=== PATIENT | male | born 1965 | race Caucasian/White ===

== ENCOUNTER → 2018-04-29 07:52 | Outpatient (CLI) | payer BC, SELFPAY ==
--- NOTE | 2018-04-29 08:05 | ECHOD_ITS ---
Reason For Study: CHF Procedure This was a 2D Doppler, Color Flow transthoracic echocardiogram. The study was technically difficult. Due to body habitus. Contrast injection was performed. Exam performed in department. Left Ventricle Moderately dilated left ventricle. Mild concentric left ventricular hypertrophy. Severe global left ventricular systolic dysfunction. The estimated ejection fraction is 20 %. There is evidence of diastolic dysfunction. Right Ventricle Normal RV size. Normal systolic function. Atria The left atrium is moderately enlarged. The right atrium is mildly enlarged. No doppler evidence for ASD. Mitral Valve There is no mitral annular calcification. Normal mitral valve. Mild-Moderate (1-2+) mitral valve insufficiency. Tricuspid Valve Normal tricuspid valve. Trivial tricuspid valve insufficiency. Right ventricular systolic pressure estimated to be 31 mmHg. Aortic Valve Trisinus/trileaflet aortic valve. Mild focal aortic valve thickening. Pulmonic Valve Normal pulmonic valve. Trivial pulmonic valve insufficiency identified. Great Vessels Normal sized aortic root. Pericardium/Pleural No pericardial effusion. Medication Diluted definity 3.0ml given slow IV push to enhance endocardial definition. MMode/2D Measurements & Calculations LVIDd: 6.4 cm IVSd: 1.3 cm Ao root diam: 3.1 cm LVIDs: 5.8 cm LVPWd: 1.3 cm RVDd: 4.0 cm FS: 9.2 % LAV(MOD-bp): 144.9 ml LA A4 area: 32.6 cm2 LA dimension(2D): 5.6 cm LAV(MOD-bp) Indexed: 55.6 ml/m2 LAV(MOD-sp2): 146.1 ml LAV(MOD-sp4): 138.4 ml RA A4 area: 28.1 cm2 Doppler Measurements & Calculations MV E max jarrett: 109.7 cm/sec Lat Peak E' Jarrett: 6.5 cm/sec Med Peak E' Jarrett: 8.5 cm/sec MV A max jarrett: 69.3 cm/sec E/E' lat: 16.8 E/E' med: 13.0 MV E/A: 1.6 Ao V2 max: 128.0 cm/sec LV V1 max: 78.7 cm/sec MR max jarrett: 539.7 cm/sec Ao max P.6 mmHg LV V1 max P.5 mmHg MR max P.6 mmHg PA V2 max: 69.2 cm/sec TR max jarrett: 258.6 cm/sec TR max P.0 mmHg Interpretation Summary The study was technically difficult. Contrast injection was performed. Moderately dilated left ventricle. Severe global left ventricular systolic dysfunction. The estimated ejection fraction is 20 %. Mild concentric left ventricular hypertrophy. The left atrium is moderately enlarged. The right atrium is mildly enlarged. Mild-Moderate (1-2+) mitral valve insufficiency. Trivial tricuspid valve insufficiency. Mild focal aortic valve thickening. Trivial pulmonic valve insufficiency identified. Right ventricular systolic pressure estimated to be 31 mmHg. There is evidence of diastolic dysfunction. Ordering Physician: Beny Catsro Referring Physician: Nabila Purdy Performed By: Darline Liz, CHITRA, RVT
== END ==
PROVIDERS: Family Provider Nurse Practitioner; PCP Nurse Practitioner; Referring Provider Internal Medicine Cardiovascular Disease; Visit Provider Internal Medicine Cardiovascular Disease
DX: I50.22 Chronic systolic (congestive) heart failure (principal); I42.9 Cardiomyopathy, unspecified
CPT/HCPCS: 93306; Q9957; A4216

== ENCOUNTER → 2018-05-06 12:15 | Outpatient (CLI) | payer BC, SELFPAY ==
[2018-05-06 11:19] VITALS: BMI 47.1
[2018-05-06 13:29] LABS: Anion Gap 6 (5-15); BUN 12 mg/dL (7-18); BUN/Creat Ratio 8.7 RATIO (10-20); Calcium,Total 8.8 mg/dL (8.5-10.1); Chloride 102 mmol/L (98-107); Creatinine, Serum 1.38 mg/dL (0.70-1.30); EST Glomerular Filtration Rate 57 mL/min (>60); Est Glom Filt Rate - Afr Amer 69 mL/min (>60); Glucose 180 mg/dL (74-106); Potassium 4.7 mmol/L (3.5-5.1); Sodium Level 137 mmol/L (136-145)
== END ==
PROVIDERS: Family Provider Nurse Practitioner; PCP Nurse Practitioner; Referring Provider Nurse Practitioner Family; Visit Provider Nurse Practitioner Family
DX: I11.0 Hypertensive heart disease with heart failure (principal); I50.22 Chronic systolic (congestive) heart failure; E11.9 Type 2 diabetes mellitus without complications
CPT/HCPCS: 36415; 80048

== ENCOUNTER → 2019-02-01 12:54 | Outpatient (CLI) | payer BC, SELFPAY ==
[2018-05-06 11:19] VITALS: BMI 47.1
[2018-10-02 13:24] VITALS: BMI 48.6
== END ==
PROVIDERS: Family Provider Nurse Practitioner; PCP Nurse Practitioner; Referring Provider Internal Medicine Cardiovascular Disease; Visit Provider Internal Medicine Cardiovascular Disease
DX: I50.22 Chronic systolic (congestive) heart failure (principal); I42.9 Cardiomyopathy, unspecified; Z95.810 Presence of automatic (implantable) cardiac defibrillator
CPT/HCPCS: 93308; Q9957; A4216; C8924

== ENCOUNTER → 2019-02-08 15:10 | Outpatient (CLI) | payer BC, SELFPAY ==
[2018-10-02 13:24] VITALS: BMI 48.6
--- NOTE | 2019-02-08 15:13 | RAD_ITS ---
HISTORY: cough x 2 weeks ADDITIONAL HISTORY: None provided. COMPARISON: None TECHNIQUE: Frontal and lateral chest radiographs. Number of images including paperwork: 4 FINDINGS: LUNGS AND PLEURA: No consolidation, mass or pleural effusion. CARDIAC SILHOUETTE: Moderately enlarged. MEDIASTINUM AND BILLY: Unremarkable. UPPER ABDOMEN: Unremarkable. SKELETON AND SOFT TISSUES: No acute findings. Degenerative changes. OTHER DEVICES AND HARDWARE: Biventricular ICD with left-sided generator. RAD/Chest PA and Lateral IMPRESSION: No acute cardiopulmonary abnormality. Cardiomegaly. at 0555 Reported and signed by: Paola Tinsley MD Electronically Signed: Paola Tinsley MD at 5:55 EST Tel , Service support ,
== END ==
PROVIDERS: Family Provider Nurse Practitioner; PCP Nurse Practitioner; Referring Provider Nurse Practitioner; Visit Provider Nurse Practitioner
DX: R05 Cough (principal)
CPT/HCPCS: 71046

== ENCOUNTER → 2019-02-09 11:52 | Outpatient (CLI) | payer BC, SELFPAY ==
[2018-10-02 13:24] VITALS: BMI 48.6
[2019-02-09 14:33] LABS: Microalbumin:Creatinine Ratio 205.7 mg/g CRE (<30 mg/g CRE)
== END ==
PROVIDERS: Family Provider Nurse Practitioner; PCP Nurse Practitioner; Referring Provider Nurse Practitioner; Visit Provider Nurse Practitioner
DX: E11.65 Type 2 diabetes mellitus with hyperglycemia (principal)
CPT/HCPCS: 82043; 82570

== ENCOUNTER 2019-12-02 16:30 | Outpatient (RCR) | payer BC, SELFPAY ==
[2019-08-20 15:46] VITALS: BMI 49.9
== END 2019-12-11 23:59 ==
LOC: NS 16:30
PROVIDERS: PCP Nurse Practitioner; Visit Provider Nurse Practitioner
DX: Z71.3 Dietary counseling and surveillance (principal); R63.5 Abnormal weight gain; Z68.42 Body mass index [BMI] 45.0-49.9, adult; E11.9 Type 2 diabetes mellitus without complications
CPT/HCPCS: 97802

== ENCOUNTER 2019-12-30 16:30 | Outpatient (RCR) | payer BC, SELFPAY ==
[2019-08-20 15:46] VITALS: BMI 49.9
== END 2020-01-10 23:59 ==
LOC: NS 16:30
PROVIDERS: PCP Nurse Practitioner; Visit Provider Nurse Practitioner
DX: Z71.3 Dietary counseling and surveillance (principal); R63.5 Abnormal weight gain; Z68.42 Body mass index [BMI] 45.0-49.9, adult; E11.9 Type 2 diabetes mellitus without complications
CPT/HCPCS: 97803

== ENCOUNTER 2020-01-19 16:53 | Outpatient (RCR) | payer BC, SELFPAY ==
[2019-12-23 16:10] VITALS: BMI 47.9
== END 2020-01-19 23:59 | disposition home or self-care (01) ==
LOC: NS 16:53
PROVIDERS: PCP Nurse Practitioner; Visit Provider Nurse Practitioner
DX: Z71.3 Dietary counseling and surveillance (principal); R63.5 Abnormal weight gain; Z68.42 Body mass index [BMI] 45.0-49.9, adult; E11.9 Type 2 diabetes mellitus without complications
CPT/HCPCS: 97803

== ENCOUNTER 2020-04-27 10:04 | Outpatient (RCR) | payer BC, SELFPAY ==
[2019-12-23 16:10] VITALS: BMI 47.9
[2020-04-27] MEDS: COVID-19 VACC, MRNA(PFIZER)/PF 30 MCG/0.3 ML SYRINGE IM (14:59)
[2020-05-18] MEDS: COVID-19 VACC, MRNA(PFIZER)/PF 30 MCG/0.3 ML SYRINGE IM (14:43)
== END 2020-04-27 23:59 ==
LOC: IMMUN 10:04
PROVIDERS: PCP Nurse Practitioner; Visit Provider Family Medicine
DX: Z23 Encounter for immunization (principal)
CPT/HCPCS: 0001A; 0002A; 91300

== ENCOUNTER 2021-03-06 11:06 | Outpatient (CLI) | payer BC, SELFPAY ==
--- NOTE | 2021-03-06 11:23 | ECHOCS_ITS ---
Reason For Study: Congenital Heart Disease Procedure This was a 2D Doppler, Color Flow transthoracic echocardiogram. Technically difficult study due to patients body habitus. Contrast injection performed. The study was technically difficult. Contrast injection was performed. Exam performed in department. Left Ventricle Moderate to severely dilated left ventricle. Moderate concentric left ventricular hypertrophy. Moderate global left ventricular systolic dysfunction. The estimated ejection fraction is 35 %. Transmitral doppler flow suggestive of impaired relaxation of left ventricle. Right Ventricle Normal RV size. ICD or pacer leads identified within the right ventricle. Normal systolic function. Atria The left atrium is moderately enlarged. Normal right atrium. ICD or pacer leads identified within the right atrium. No doppler evidence for ASD. Mitral Valve There is no mitral annular calcification. Anterior leaflet diffuse mitral valve thickening. Moderate (2+) eccentric mitral valve insufficiency. Tricuspid Valve Normal tricuspid valve. Trivial tricuspid valve insufficiency. Unable to estimate RV systolic pressure/pulmonary artery pressure due to technically difficult study. Aortic Valve Trisinus/trileaflet aortic valve. Normal aortic valve. Pulmonic Valve The pulmonic valve is not well visualized. Great Vessels The aortic root is not well visualized. Pericardium/Pleural No pericardial effusion. Medication 22 gauge I.V. with prn adaptor inserted into left arm. Diluted definity 3ml given slow IV push to enhance endocardial definition. MMode/2D Measurements & Calculations LVIDd: 6.4 cm IVSd: 1.4 cm LA dimension: 6.2 cm LVIDs: 5.7 cm LVPWd: 1.7 cm FS: 12.1 % LAV(MOD-bp): 90.0 ml LA A4 area: 28.4 cm2 LAV(MOD-bp) Indexed: 33.7 ml/m2 LAV(MOD-sp2): 77.1 ml LAV(MOD-sp4): 99.4 ml Time Measurements MV dec time: 0.19 sec Doppler Measurements & Calculations MV E max rylie: 75.8 cm/sec MV V2 max: 94.9 cm/sec MV P1/2t max rylie: 86.3 cm/sec MV A max rylie: 95.6 cm/sec MV max P.6 mmHg MV P1/2t: 63.4 msec MV E/A: 0.79 MV V2 mean: 53.5 cm/sec MV dec slope: 398.8 cm/sec2 MV mean P.3 mmHg MV V2 VTI: 23.8 cm MVA(P1/2t): 3.5 cm2 Ao V2 max: 123.2 cm/sec LV V1 max: 90.0 cm/sec MR max rylie: 554.2 cm/sec Ao max P.1 mmHg LV V1 max P.2 mmHg MR max P.9 mmHg MR mean rylie: 410.5 cm/sec MR mean P.0 mmHg MR VTI: 186.8 cm PA V2 max: 76.1 cm/sec ECHO/Echo Complete W/ Contrast Interpretation Summary The study was technically difficult. Contrast injection was performed. Moderate to severely dilated left ventricle. Moderate global left ventricular systolic dysfunction. The estimated ejection fraction is 35 %. Moderate concentric left ventricular hypertrophy. The left atrium is moderately enlarged. Anterior leaflet diffuse mitral valve thickening. Moderate (2+) eccentric mitral valve insufficiency. Trivial tricuspid valve insufficiency. Unable to estimate RV systolic pressure/pulmonary artery pressure due to techni rashawn difficult study. Transmitral doppler flow suggestive of impaired relaxation of left ventricle Ordering Physician: Ramila Hendrix Referring Physician: Nabila Purdy Performed By: Raji Neal RCS
== END 2021-03-06 23:59 | disposition short-term general hospital (02) ==
PROVIDERS: PCP Nurse Practitioner; Referring Provider Physician Assistant Medical; Visit Provider Physician Assistant Medical
DX: I42.9 Cardiomyopathy, unspecified (principal); I34.0 Nonrheumatic mitral (valve) insufficiency
CPT/HCPCS: 93306; Q9957; A4216; C8929

== ENCOUNTER 2021-07-18 10:00 | Outpatient (RCR) | payer BC, SELFPAY ==
--- NOTE | 2021-06-21 13:58 | HP.PTEVAL ---
Patient's Visit Information MARK RAYMUNDO is a 55 year old M referred to Physical Therapy by DERRICK STEVE with a diagnosis of Right TKR Revision. Date of Evaluation: 06/21/21 Physical Therapist: Christina East DPT - Visit Plan Frequency: 2-3x /Week Duration: 4 Weeks Plan: Right TKR Revision. HEP Given IE: seated bolster extn, HR/TR, SLS, heel slide, SLR - Subjective He had a right total knee fall of 2014- started having issues with it Fall 2020- put it off until May 31 at [facility] for femur revision. Lots of stairs at home- was supposed to go to rehab but it fell through. Ended up at the hospital for about a week. Then went home from there with lots of stairs- lives with girlfriend who can help as needed. He is I with all dressing and bathing. He did not have home health- but was in a knee immobilizer for 2 weeks. He is WBAT at this point-he is using a single crutch but brought both today. Fully I prior to surgery and did not use an AD. The most problem was going down the stairs- poor eccentric control. Pain at its Worst: 8/10 Agg: trying to lift it up into bed. Eases: comfortable position. Best: 3/10. Is no longer iceing. Describes the pain as bad dull and achy pain. Pain does radiate a little up into the thigh but not to the toes. Does have a little N/T in the toes due to the neuropathy- foot was really swollen but now that is diminished its better. Sleep: getting better- in bed- side sleeper. 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 He is more sedentary but does go to the gym 3x a week- would like to change it. Leading up to surgery lots of leg work- mostly machine- some free weights- very little cardio (but thinks he shoulder add more in). PMHx/Meds: no change since cardiac visit in 05/01- Does have a pacemaker. - Objective Posture: FH, RS can correct but does not maintain. Gait: antalgic- 4 point gait with axillary crutches- decreased stance on the right LE. HR/TR: able with UE A. SLS: weight shift but unable to SLS without UE A. Observation: incision healing well- no s/s of infection or open areas. Palpation: tender throughout knee medial and lateral joint line. Transfers: able without A but slow. ROM: 20-105 degrees. Girth: Patella: 47 cm, 6 above: 68 cm. Strength: Core: fair, Hip: SLR: without lag. Knee: flexion: 35. Extn: 50. Flex: HS: severe, Gastroc: severe. WOMAC: 44.8 - Balance/Special Test Scores Lower Extremity Functional Score: 19 TUG Test Time Seconds: 14 WOMAC Total Score: 53 WOMAC Percentatge: 44.8000 - Goals Goal 1:: Patient will be I with HEP and progression Goal Time Frame: 4-6 Weeks Goal 2:: Patient will perform TUG in under 10 sec with LRD Goal 3:: Patient will ambulate >300 feet with a normalized gait pattern and LRD Goal Time Frame: 4-6 Weeks Goal 4:: Patient will asc/desc 8 stairs recip with no HR Goal Time Frame: 4-6 Weeks Goal 5:: Patient will report 80% improvement Goal Time Frame: 4-6 Weeks - Rehabilitation Potential Physical Therapy Diagnosis: Patient presents s/p right total knee revision- he has decreased LE and core strength/stabilization, painfree ROM, proprioception and muscular endurance leading to abnormal gait and increased pain with ADL's. Rehabilitation Potential: Good - Anticipated Interventions Patient/Client Instruction: Educate patient on: Benefits of Fitness Program Therapeutic Exercise to Include: Strength training, Endurance training, Balance training, Coordination, Agility training, Body mechanics, Postural training, Flexibilty training, Gait and locomotor training, Neuromotor development, Passive ROM, Active ROM, Dynamic Lumbar Stabilization, Scapular Strength/Stabilization For the Purpose of:: To improve muscle performance and motor function TENS: No - Pacemaker Cryotherapy (ice pack, ice massage): Yes Thermo therapy (hot pack): Yes Thank you for the opportunity to evaluate your patient. For Medicare and Medicare HMO plans, please review the plan of care and approve it. It will need to be FAXED BACK to us at [phone] for Medicare purposes. For Medicare only, by signing this I certify the plan of care. Please let me know if there are questions or concerns regarding this plan of care. Physician Signature: Date:
--- NOTE | 2021-07-18 10:53 | HP.PTDCSUM ---
It has been my pleasure to treat MARK RAYMUNDO referred by DERRICK STEVE, with the diagnosis of Right TKR Revision for a total of 12 visit(s). Discharge Date: Please see the following information for a summary of their discharge status. Subjective: Patient reports that he saw the MD- he feels that he is ahead of schedule or gait and range of motion. Back to work today. 30% is strength. He is back to [employer]. He reports mild to moderate pain. Right knee Pain Intensity (Out of 10): 3 Left knee Pain Intensity (Out of 10): 2 % Improvement: 70 Objective/Function: Posture: fair throughout. Gait: slightly antalgic- increased JOSE- no AD HR/TR: able with UE A. Stairs: asc/desc 8 recip with 1 HR- decreased control with descent. Observation: incision healing well- no s/s of infection or open areas. SLS: weight shift but unable to SLS without UE A. Palpation: tender throughout knee medial and lateral joint line. ROM: 10-124 degrees. Girth: Patella: 46 cm, 6 above: 60 cm. Strength: Core: fair, Hip: SLR: without lag. Knee: flexion: 45. Extn: 75. Flex: HS: mod, Gastroc: mod Goal 1:: Patient will be I with HEP and progression Goal Progress: Goal Met Goal 2:: Patient will perform TUG in under 10 sec with LRD Goal Progress: Goal Met Goal 3:: Patient will ambulate >300 feet with a normalized gait pattern and LRD Goal Progress: Goal Met Goal 4:: Patient will asc/desc 8 stairs recip with no HR Goal Progress: Goal Met Goal 5:: Patient will report 80% improvement Goal Progress: Progressing Plan: 07/18/21: Discharge to [facility] If there are questions or concerns regarding this patient's physical therapy, please feel free to call me at [phone]. Thank you for the referral of this patient. Sincerely, Christina East DPT Balance/Gait/Functional tests - Balance/Special Test Scores Lower Extremity Functional Score: 48 TUG Test Time Seconds: 8.0 Tug Test: <10 sec.=free mobile WOMAC Total Score: 17 WOMAC Percentage: 82.3000
== END 2021-07-18 14:46 | disposition home or self-care (01) ==
LOC: PT 10:00
PROVIDERS: PCP Nurse Practitioner
DX: M25.561 Pain in right knee (principal); G89.18 Other acute postprocedural pain; M25.661 Stiffness of right knee, not elsewhere classified
CPT/HCPCS: 97110; 97162; 97164

== ENCOUNTER → 2021-07-23 | Outpatient (CLI) | payer BC, SELFPAY ==
--- NOTE | 2021-07-23 14:11 | ECHOLC_ITS ---
Reason For Study: Chest Pain Procedure This was a 2D Doppler, Color Flow transthoracic echocardiogram. The study was technically difficult. Contrast injection was performed. Exam performed in department. Left Ventricle Based upon the 2D echocardiographic and contrast enhanced images obtained there appears to be severe left ventricular dilatation with moderately severe global left ventricular systolic dysfunction. The estimated ejection fraction is 30 %. Unable to assess diastolic dysfunction. Right Ventricle ICD or pacer leads identified within the right ventricle. Based upon the 2D echocardiographic images obtained there appears to be grossly normal right ventricular size and systolic function. Atria The left atrium is moderately enlarged. Normal right atrium. ICD or pacer leads identified within the right atrium. No doppler evidence for ASD. Mitral Valve There is no mitral annular calcification. Normal mitral valve. Trivial mitral valve insufficiency. Tricuspid Valve The tricuspid valve is not well visualized. Trivial tricuspid valve insufficiency. Unable to estimate RV systolic pressure due to insufficient tricuspid regurgitant envelope. Aortic Valve The aortic valve is not well visualized. Pulmonic Valve The pulmonic valve is not well visualized. Great Vessels The aortic root is not well visualized. Pericardium/Pleural No pericardial effusion. Medication 20 gauge I.V. with prn adaptor inserted into left arm. Diluted definity 3ml given slow IV push to enhance endocardial definition. MMode/2D Measurements & Calculations LVIDd: 6.5 cm IVSd: 1.2 cm LA dimension: 5.0 cm LVIDs: 5.5 cm LVPWd: 1.1 cm FS: 14.7 % LAV(MOD-bp): 104.8 ml LVAd ap4: 46.7 cm2 SV(MOD-sp4): 62.0 ml LAV(MOD-bp) Indexed: 40.1 ml/m2 LVLd ap4: 8.9 cm LAV(MOD-sp2): 96.8 ml EDV(MOD-sp4): 201.0 ml LAV(MOD-sp4): 103.0 ml EDV(sp4-el): 208.6 ml LVAs ap4: 38.4 cm2 LVLs ap4: 8.5 cm ESV(MOD-sp4): 139.1 ml ESV(sp4-el): 146.5 ml EF(MOD-sp4): 30.8 % EF(sp4-el): 29.8 % SV(sp4-el): 62.1 ml LA A4 area: 29.1 cm2 Doppler Measurements & Calculations PA V2 max: 102.7 cm/sec ECHO/Echo Limited w/Contrast Interpretation Summary The study was technically difficult. Contrast injection was performed. Based upon the 2D echocardiographic and contrast enhanced images obtained there appears to be severe left ventricular dilatation with moderately severe global left ventricular syst olic dysfunction. The estimated ejection fraction is 30 %. The left atrium is moderately enlarged. Trivial mitral valve insufficiency. Trivial tricuspid valve insufficiency. Unable to estimate RV systolic pressure due to insufficient tricuspid regurgita nt envelope. ICD or pacer leads identified within the right atrium ICD or pacer leads identified within the right ventricle. Ordering Physician: Ramila Hendrix Referring Physician: Nabila Purdy Performed By: Raji Neal RCS
== END | disposition home or self-care (01) ==
LOC: CVS 14:10
PROVIDERS: PCP Nurse Practitioner; Referring Provider Physician Assistant Medical; Visit Provider Physician Assistant Medical
DX: R07.9 Chest pain, unspecified (principal); I42.9 Cardiomyopathy, unspecified
CPT/HCPCS: 93308; Q9957; A4216; C8924

== ENCOUNTER → 2021-08-09 | Outpatient (CLI) | payer BC, SELFPAY | END | disposition home or self-care (01) | LOC: LAB 15:59 | PROVIDERS: Visit Provider Physician Assistant Medical | DX: R69 Illness, unspecified (principal) ==

== ENCOUNTER → 2021-08-14 | Outpatient (CLI) | payer BC, SELFPAY ==
[2021-08-14 16:34] LABS: Anion Gap 6 (5-15); BUN 17 mg/dL (7-18); Calcium,Total 9.2 mg/dL (8.5-10.1); Chloride 107 mmol/L (98-107); Creatinine, Serum 1.13 mg/dL (0.70-1.30); EST Glomerular Filtration Rate 71 mL/min (>60); Est Glom Filt Rate - Afr Amer 86 mL/min (>60); Glucose 195 mg/dL (74-106); Potassium 4.3 mmol/L (3.5-5.1); Sodium Level 141 mmol/L (136-145)
== END | disposition home or self-care (01) ==
LOC: LAB 15:41
PROVIDERS: PCP Nurse Practitioner; Referring Provider Physician Assistant Medical; Visit Provider Physician Assistant Medical
DX: I42.9 Cardiomyopathy, unspecified (principal); I10 Essential (primary) hypertension; E78.5 Hyperlipidemia, unspecified; Z95.810 Presence of automatic (implantable) cardiac defibrillator
CPT/HCPCS: 36415; 80048

== ENCOUNTER → 2021-11-29 | Outpatient (CLI) | payer BC, SELFPAY ==
--- NOTE | 2021-11-29 14:06 | ECHOL_ITS ---
Reason For Study: LV FUNCTION Procedure This was a limited 2D transthoracic echocardiogram. The study was technically difficult. Contrast injection was performed. Limited views were obtained. Exam performed in department. Left Ventricle Based upon the 2D echocardiographic and contrast enhanced images obtained there appears to be left ventricular dilatation with global left ventricular systolic dysfunction. The estimated ejection fraction is 35 %. Unable to assess diastolic dysfunction. Right Ventricle Normal RV size. Normal systolic function. Atria The left atrium is mildly enlarged. Normal right atrium. Mitral Valve There is no mitral annular calcification. Normal mitral valve. Tricuspid Valve Normal tricuspid valve. Aortic Valve Trisinus/trileaflet aortic valve. Normal aortic valve. Pulmonic Valve The pulmonic valve is not well visualized. Great Vessels Borderline-mildly enlarged aortic root. Pericardium/Pleural Trivial pericardial effusion. There are no echocardiographic indications of cardiac tamponade. Medication 22 gauge I.V. with prn adaptor inserted into left arm. Diluted definity 2ml given slow IV push to enhance endocardial definition. MMode/2D Measurements & Calculations LVIDd: 6.1 cm IVSd: 1.3 cm Ao root diam: 3.9 cm LVIDs: 3.7 cm LVPWd: 1.1 cm FS: 38.8 % LAV(MOD-sp4): 77.9 ml LVAd ap4: 55.0 cm2 SV(MOD-sp4): 88.2 ml LVLd ap4: 10.6 cm EDV(MOD-sp4): 234.7 ml EDV(sp4-el): 242.3 ml LVAs ap4: 40.7 cm2 LVLs ap4: 9.3 cm ESV(MOD-sp4): 146.6 ml ESV(sp4-el): 151.3 ml EF(MOD-sp4): 37.6 % EF(sp4-el): 37.6 % SV(sp4-el): 91.1 ml LA A4 area: 24.8 cm2 LA dimension(2D): 4.4 cm ECHO/Echo Limited w/Contrast Interpretation Summary The study was technically difficult. Contrast injection was performed. Limited views were obtained. Based upon the 2D echocardiographic and contrast enhanced images obtained there appears to be left ventricular dilatation with global left ventricular systolic dysfunction. The estimated ejection fraction is 35 %. The left atrium is mildly enlarged. Borderline-mildly enlarged aortic root. Trivial pericardial effusion. There are no echocardiographic indications of cardiac tamponade. Unable to assess diastolic dysfunction. Ordering Physician: Ramila Hendrix Performed By: Ashwini Simmons RCS
== END | disposition home or self-care (01) ==
LOC: CVS 14:06
PROVIDERS: PCP Nurse Practitioner Family; Visit Provider Physician Assistant Medical
DX: I51.7 Cardiomegaly (principal); Z95.810 Presence of automatic (implantable) cardiac defibrillator
CPT/HCPCS: 93308; Q9957; A4216; C8924

== ENCOUNTER 2021-12-28 12:00 | Outpatient (RCR) | payer BC, SELFPAY ==
--- NOTE | 2021-11-12 15:17 | HP.PTEVAL_ITS ---
Patient's Visit Information MARK RAYMUNDO is a 55 year old M referred to Physical Therapy by YARIEL Smith with a diagnosis of L hip pain, OA. Date of Evaluation: 11/12/21 Physical Therapist: Maciej Kat, DPT, OCS, CSCS - Visit Plan Frequency: 3x /Week Duration: 2-4 Weeks Plan: 3x/week for 2-4 weeks for... 1. rolluot and stretch L hip flexor and quad, grade 4 mo9bs and leg pull to increase extension ROM L. 2. strength B hip extension, rotations, abd, stabs and progress to I HEP and gym(pt goes to a gym with technology trainer) - Subjective Has L hip pain and saw two doctors one at [facility]. Both said he has good joint space but diagnosed with hip flexor tedonitis. Has been painful a couple weeks insidiously. It stays anterior in the groin L. It ranges from 8/10 with standing and pivotting or sitting too long and standing up. On his feet it goes down a bit. 3/10 walking today. 0/10 at rest. sleep is Ok. No numbness or tingling.. No back problems. Had this one other time and steroids took care of it. Is on steroids right now. Still goes to gym but has to be careful, rides bike and does leg machines and upper body. Hurts to extend hip. 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 Is able to work but gets a little burn feeling if sits too long. Hobbies: gym. 4 days per week. - Pain L hip anterior Pain Intensity (Out of 10): 0 Pain Intensity Range: 0, 8 - Objective Ambulates into PT without antalgia I, short steps. Transfers table and chair I. some pain with lifting L LE on table. Max tightness in B hip flexors and quads. Painful to extend L hip passively. Steps reciprocally up and down without increased pain. AROM B hips WFL except ext, some slight discomfort with L IR but not bad, extension is only to about 0 degrees B and very tight. Prone knee bend causes pelvis to tiltanteriorly and elevate off table. No obvious limitations outside of soft tissue into extnesion. strength hip ext and abduction 3+ and flexion 4-, quad and HS strength 5/5, ankle strength 5/5. Some pain with R hip flexion resisted and stretching to those same muscles trasniently. Sensation LE WNL to gross light touch. - SLIME. - FADDIR. - scouring - Balance/Special Test Scores Lower Extremity Functional Score: 29 - Goals Goal 1:: Pt I in appropriate stretch and strengthen to manage L hip pain Goal Time Frame: 2-4 Weeks Goal 2:: atient feel pain L hip 1/10 at worst and 85% improved. Goal Time Frame: 2-4 Weeks Goal 3:: Tolerate workout at gym without limitations or pain increase. Goal Time Frame: 2-4 Weeks Goal 4:: LEFS 60 Goal Time Frame: 2-4 Weeks - Rehabilitation Potential Physical Therapy Diagnosis: L hip pain, tightness anteriorly limiting function Rehabilitation Potential: Good - Anticipated Interventions Patient/Client Instruction: Educate patient on: Condition, Plan of Care For the Purpose of:: To decrease pain, To increase ROM, To improve muscle performance and motor function, To increase tolerance to activity/condition/position Therapeutic Exercise to Include: Strength training, Flexibilty training For the Purpose of:: To decrease pain, To increase ROM, To improve muscle performance and motor function, To improve ability of physical actions for home/community/work/leisure Manual Therapy Techniques to Include: Mobilization, Soft tissue mobilization For the Purpose of:: To decrease pain, To increase ROM Thank you for the opportunity to evaluate your patient. For Medicare and Medicare HMO plans, please review the plan of care and approve it. It will need to be FAXED BACK to us at [phone] for Medicare purposes. For Medicare only, by signing this I certify the plan of care. Please let me know if there are questions or concerns regarding this plan of care. Physician Signature: Date:
--- NOTE | 2021-12-05 15:21 | HP.PTREVAL ---
YARIEL Smith, It has been my pleasure to treat MARK RAYMUNDO over the last 7 visits for L hip pain, OA. Please see the progress note below for an update on the physical therapy plan of care! Subjective: Stretches help. Less pain doing things, does not stop him in hi s tracks anymore. Just feels a little pull. 4/10 once or twice with pivotting. To doctor next week,. Doing stretching and strengthening at home. Massage gun really helps. Wants continued therapy. Objective/Function: Tender anterior r hip to touch and especially with extension at hip. Still tight in quad. Walks with continued antalgia in R hip extension. However much improved overall and steps reciprocal without pain. Goals progressing and still appropriate for the next 4 weeks. Fair prognosis. Pt to doctor next week. Plan Plan: Conintue 3x/week for 2-4 weeks ...please work on. R leg pull, r leg belt mobs, R quad stretch and rollout adn hip flexor. Strengthen R hip and core in gym adn progress to [employer]. Balance/Gait/Functional tests - Balance/Special Test Scores Lower Extremity Functional Score: 56 Goals Goal 1:: Pt I in appropriate stretch and strengthen to manage L hip pain Goal Time Frame: 2-4 Weeks Goal Progress: Goal Met Goal 2:: Patient feel pain L hip 1/10 at worst and 85% improved. Goal Time Frame: 2-4 Weeks Goal Progress: Progressing Goal 3:: Tolerate workout at gym without limitations or pain increase. Goal Time Frame: 2-4 Weeks Goal Progress: Goal Met Goal 4:: LEFS 60 Goal Time Frame: 2-4 Weeks Goal Progress: Progressing Anticipated Interventions Patient/Client Instruction: Educate patient on: Condition, Plan of Care For the Purpose of:: To decrease pain, To increase ROM, To improve muscle performance and motor function, To increase tolerance to activity/condition/position Therapeutic Exercise to Include: Strength training, Flexibilty training For the Purpose of:: To decrease pain, To increase ROM, To improve muscle performance and motor function, To improve ability of physical actions for home/community/work/leisure Manual Therapy Techniques to Include: Mobilization, Soft tissue mobilization For the Purpose of:: To decrease pain, To increase ROM Please do not hesitate to contact me at [phone] by phone or if you have questions or concerns regarding this new plan of care! Sincerely, Maciej Kat, DPT, OCS, CSCS
--- NOTE | 2021-12-12 15:04 | HP.PTREVAL_ITS ---
YARIEL Smith, It has been my pleasure to treat MARK RAYMUNDO over the last 9 visits for L hip pain, OA. Please see the progress note below for an update on the physical therapy plan of care! Subjective: Got scirpt for L ankle sprain. it hurt one day after therapy about two weeks ago. Not sure what caused it. Did not hurt in therapy but did the next morning. Pain is lateral L ankle primarily when walking now but was constant. It does not keep him up at night anymore. Taking naproxen at times. Took an xray which was fine and no meds given. Causes him to limp and is apprehensive to go shopping. Objective/Function: Inversion limited on L and tight feeling, 15 degrees, DF painfree and 0, eversion 12 and painfree, PF tight and 55. Walks with slight L antalgia today and avoids pushoff slightly. tender to palpation L anterior talo fib lig area. - talar tilt. Plan Plan: Adding ankle US and rom and strength to POC. . continue 2-3x/week , please do... belt mobs, leg pull, massage gun to L lat/anterior hip. Pleaee do US to L ankle thermal laterally and end range inversion stretch adn ankle strength/proprio. Balance/Gait/Functional tests - Balance/Special Test Scores Lower Extremity Functional Score: 56 Goals Goal 1:: Pt I in appropriate stretch and strengthen to manage L hip pain Goal Time Frame: 2-4 Weeks Goal Progress: Goal Met Goal 2:: Patient feel pain L hip 1/10 at worst and 85% improved. Goal Time Frame: 2-4 Weeks Goal Progress: Progressing Goal 3:: Tolerate workout at gym without limitations or pain increase. Goal Time Frame: 2-4 Weeks Goal Progress: Goal Met Goal 4:: LEFS 60 Goal Time Frame: 2-4 Weeks Goal Progress: Progressing Goal 5:: ankle feel back to normal 100% and walk without antalgia. Goal Time Frame: 2-4 Weeks Goal Progress: NEW GOAL Anticipated Interventions Patient/Client Instruction: Educate patient on: Condition, Plan of Care For the Purpose of:: To decrease pain, To increase ROM, To improve muscle p erformance and motor function, To increase tolerance to activity/condition/position Therapeutic Exercise to Include: Strength training, Flexibilty training For the Purpose of:: To decrease pain, To increase ROM, To improve muscle performance and motor function, To improve ability of physical actions for home/community/work/leisure Manual Therapy Techniques to Include: Mobilization, Soft tissue mobilization For the Purpose of:: To decrease pain, To increase ROM Please do not hesitate to contact me at [phone] by phone or if you have questions or concerns regarding this new plan of care! Sincerely, Maciej Kat, DPT, OCS, CSCS
--- NOTE | 2021-12-24 14:49 | HP.PTREVAL ---
YARIEL Smith, It has been my pleasure to treat MARK RAYMUNDO over the last 14 visits for L hip pain, OA. Please see the progress note below for an update on the physical therapy plan of care! Subjective: Ankles really coming around. It is 80% better. 04/19 over the weekend walking and steps. Hip is slowly improving. 05/20 when trying to stretch. Gone after stretching. Sometimes worse with walking. Especially getting up after sitting for a while. Hip is 70% better. To [facility] end of December. Going out of town next week. Objective/Function: Walking without antalgia today I. I with gait and transfers. Ankle aROM WFL and strength 4+/5 eversion and DF without pain, still some tenderness laterally. Hip ROM limited in extension and tight quad and psoas persists but improving. Plan Plan: 2 more visits this week in POC for US to lateral ankle and hip manual/ex for proprio and hip. Then pt to doctor, no f/u visit with PT needed unless condition worsens prior to seeing doctor and he is ordered back. Balance/Gait/Functional tests - Balance/Special Test Scores Lower Extremity Functional Score: 49 Goals Goal 1:: Pt I in appropriate stretch and strengthen to manage L hip pain Goal Time Frame: 2-4 Weeks Goal Progress: Goal Met Goal 2:: Patient feel pain L hip 1/10 at worst and 85% improved. Goal Time Frame: 2-4 Weeks Goal Progress: Progressing Goal 3:: Tolerate workout at gym without limitations or pain increase. Goal Time Frame: 2-4 Weeks Goal Progress: Goal Met Goal 4:: LEFS 60 Goal Time Frame: 2-4 Weeks Goal Progress: Progressing Goal 5:: ankle feel back to normal 100% and walk without antalgia. Goal Time Frame: 2-4 Weeks Goal Progress: 80% and normal gait. Anticipated Interventions Patient/Client Instruction: Educate patient on: Condition, Plan of Care For the Purpose of:: To decrease pain, To increase ROM, To improve muscle performance and motor function, To increase tolerance to activity/condition/position Therapeutic Exercise to Include: Strength training, Flexibilty training For the Purpose of:: To decrease pain, To increase ROM, To improve muscle performance and motor function, To improve ability of physical actions for home/community/work/leisure Manual Therapy Techniques to Include: Mobilization, Soft tissue mobilization For the Purpose of:: To decrease pain, To increase ROM Please do not hesitate to contact me at [phone] by phone or if you have questions or concerns regarding this new plan of care! Sincerely, Maciej Kat, DPT, OCS, CSCS
--- NOTE | 2022-02-21 17:55 | HP.PT.NRP ---
MARK RAYMUNDO was seen in my office for initial evaluation on 11/12/21. The following Plan of Care was established for this patient: Initial Frequency: 3x /Week Initial Duration: 2-4 Weeks Patient/Client Instruction: Educate patient on: Condition, Plan of Care For the Purpose of:: To decrease pain, To increase ROM, To improve muscle performance and motor function, To increase tolerance to activity/condition/position Therapeutic Exercise to Include: Strength training, Flexibilty training For the Purpose of:: To decrease pain, To increase ROM, To improve muscle performance and motor function, To improve ability of physical actions for home/community/work/leisure Manual Therapy Techniques to Include: Mobilization, Soft tissue mobilization For the Purpose of:: To decrease pain, To increase ROM This patient was last seen in our office 12/28/21. Pertinent comments regarding their Physical therapy will appear below: Pt seen 16 visits for POC for hip and ankle pain and was 70+% better at last recheck and doing well. He did not attend his last scheduled visit. At this point, it has been over 6 weeks and I will discontinue due to nonattendance. At this point I will be discontinuing this patient from physical therapy. I would be happy to see this patient again in the future if found appropriate by the physician. Thank you! Maciej Kat, DPT, OCS, CSCS Balance/Gait/Functional tests - Balance/Special Test Scores Lower Extremity Functional Score: 49
== END 2021-12-28 19:00 | disposition home or self-care (01) ==
LOC: PT 12:00
PROVIDERS: PCP Nurse Practitioner Family; Referring Provider Physician Assistant; Visit Provider Physician Assistant
DX: M25.552 Pain in left hip (principal); M16.12 Unilateral primary osteoarthritis, left hip; M16.9 Osteoarthritis of hip, unspecified; M25.859 Other specified joint disorders, unspecified hip; M25.572 Pain in left ankle and joints of left foot
CPT/HCPCS: 97035; 97110; 97140; 97161; 97164; 97530

== ENCOUNTER → 2022-08-09 | Outpatient (CLI) | payer BC, SELFPAY ==
--- NOTE | 2022-08-09 10:04 | ECHOL_ITS ---
Reason For Study: CARDIOMYOPATHY Procedure This was a limited 2D transthoracic echocardiogram. The study was technically difficult. due to body habitus. Contrast injection was performed. Exam performed in department. Left Ventricle Moderately dilated left ventricle. Mild concentric left ventricular hypertrophy. Mild to moderate global left ventricular systolic dysfunction. The left ventricular ejection fraction is 40 %. There is mild to moderate global hypokinesis of the left ventricle. Right Ventricle Normal RV size. Normal systolic function. Atria The left atrium is moderately enlarged. Normal right atrium. Great Vessels Normal aortic root. Pericardium/Pleural No pericardial effusion. Medication 22 gauge I.V. with prn adaptor inserted into right arm. Diluted definity 3.0ml given slow IV push to enhance endocardial definition. MMode/2D Measurements & Calculations LVIDd: 6.2 cm IVSd: 1.3 cm Ao root diam: 3.4 cm LVIDs: 5.1 cm LVPWd: 1.3 cm RVDd: 3.8 cm FS: 17.7 % LAV(MOD-bp): 109.7 ml LVAd ap4: 47.7 cm2 LVAd ap2: 47.2 cm2 LAV(MOD-bp) Indexed: 42.9 ml/m2 LVLd ap4: 11.2 cm LVLd ap2: 10.9 cm LAV(MOD-sp2): 109.4 ml EDV(MOD-sp4): 169.1 ml EDV(MOD-sp2): 166.0 ml LAV(MOD-sp4): 103.9 ml EDV(sp4-el): 172.8 ml EDV(sp2-el): 173.2 ml LVAs ap4: 32.9 cm2 LVAs ap2: 34.1 cm2 LVLs ap4: 9.8 cm LVLs ap2: 10.0 cm ESV(MOD-sp4): 91.8 ml ESV(MOD-sp2): 95.4 ml ESV(sp4-el): 93.9 ml ESV(sp2-el): 98.9 ml EF(MOD-sp4): 45.7 % EF(MOD-sp2): 42.6 % EF(sp4-el): 45.7 % SV(MOD-sp4): 77.4 ml SV(MOD-sp2): 70.7 ml SV(sp4-el): 78.9 ml LA A4 area: 28.2 cm2 LA dimension(2D): 4.9 cm RA A4 area: 19.1 cm2 ECHO/Echo Limited w/Contrast Interpretation Summary Moderately dilated left ventricle. Mild concentric left ventricular hypertrophy. Mild to moderate global left ventricular systolic dysfunction. The left ventricular ejection fraction is 40 %. There is mild to moderate global hypokinesis of the left ventricle. Contrast injection was performed. Compared to previous study, the left ventricu lar systolic function has improved.. Ordering Physician: Beny Castro Referring Physician: Irene Kat Performed By: Darline Liz RDCS, RVT
== END | disposition home or self-care (01) ==
PROVIDERS: PCP Nurse Practitioner Family; Referring Provider Nurse Practitioner Family; Visit Provider Internal Medicine Cardiovascular Disease
DX: Z01.810 Encounter for preprocedural cardiovascular examination (principal); I42.9 Cardiomyopathy, unspecified
CPT/HCPCS: 93308; Q9957; A4216; C8924

== ENCOUNTER 2023-09-30 15:30 | Outpatient (RCR) | payer BC, SELFPAY | END 2023-10-11 23:59 | LOC: NS 15:30 | PROVIDERS: PCP Nurse Practitioner Family; Visit Provider Orthopaedic Surgery | DX: Z71.3 Dietary counseling and surveillance (principal); E66.01 Morbid (severe) obesity due to excess calories; Z68.42 Body mass index [BMI] 45.0-49.9, adult | CPT/HCPCS: 97802 ==

== ENCOUNTER 2023-10-27 15:08 | Outpatient (RCR) | payer BC, SELFPAY | END 2023-11-10 23:59 | LOC: NS 15:08 | PROVIDERS: PCP Nurse Practitioner Family; Visit Provider Orthopaedic Surgery | DX: Z71.3 Dietary counseling and surveillance (principal); Z68.42 Body mass index [BMI] 45.0-49.9, adult | CPT/HCPCS: 97803 ==

== ENCOUNTER 2023-12-16 14:10 | Outpatient (RCR) | payer BC, SELFPAY | END 2024-01-10 23:59 | LOC: NS 14:10 | PROVIDERS: PCP Nurse Practitioner Family; Visit Provider Orthopaedic Surgery | DX: Z71.3 Dietary counseling and surveillance (principal); E66.01 Morbid (severe) obesity due to excess calories; Z68.42 Body mass index [BMI] 45.0-49.9, adult ==

== ENCOUNTER → 2024-01-30 | Outpatient (CLI) | payer BC, SELFPAY ==
--- NOTE | 2024-01-30 13:56 | ECHOCS_ITS ---
Reason For Study: REEVALUATE EF Procedure This was a 2D Doppler, Color Flow transthoracic echocardiogram. The study was technically difficult. Limited views were obtained. Exam performed in department. Left Ventricle Normal LV size. The left ventricular ejection fraction is 30 %. There is moderate to severe global hypokinesis of the left ventricle. Right Ventricle Normal RV size. ICD or pacer leads identified within the right ventricle. Normal systolic function. Atria Normal left atrium. Normal right atrium. Mitral Valve Normal mitral valve. Tricuspid Valve Normal tricuspid valve. Aortic Valve Trisinus/trileaflet aortic valve. Pulmonic Valve Normal pulmonic valve. Great Vessels Normal aortic root. The pulmonary artery is normal size. Inferior vena cava collapse with respiration. Pericardium/Pleural No pericardial effusion. Medication 22 gauge I.V. with prn adaptor inserted into right arm. Diluted definity 1.5ml given slow IV push to enhance endocardial definition. MMode/2D Measurements & Calculations LVIDd: 6.2 cm IVSd: 1.2 cm LVOT diam: 2.0 cm LVIDs: 5.0 cm LVPWd: 1.6 cm FS: 20.3 % LVOT area: 3.0 cm2 % IVS thick: 3.9 % Ao root diam: 3.5 cm LAV(MOD-bp): 58.9 ml LAV(MOD-bp) Indexed: 22.5 ml/m2 LAV(MOD-sp2): 46.2 ml LAV(MOD-sp4): 71.2 ml SV(MOD-sp4): 60.1 ml LVAd ap4: 46.7 cm2 LVAd ap2: 52.8 cm2 LVLd ap4: 9.7 cm LVLd ap2: 10.4 cm SI(MOD-sp4): 23.0 ml/m2 EDV(MOD-sp4): 184.2 ml EDV(MOD-sp2): 219.8 ml EDV(sp4-el): 191.9 ml EDV(sp2-el): 228.7 ml LVAs ap4: 34.2 cm2 LVAs ap2: 36.7 cm2 LVLs ap4: 8.1 cm LVLs ap2: 9.6 cm ESV(MOD-sp4): 124.1 ml ESV(MOD-sp2): 114.6 ml ESV(sp4-el): 122.9 ml ESV(sp2-el): 119.5 ml EF(MOD-sp4): 32.6 % EF(MOD-sp2): 47.9 % EF(sp4-el): 36.0 % SV(MOD-sp2): 105.2 ml SV(sp4-el): 69.0 ml LA A4 area: 22.6 cm2 SI(MOD-sp2): 40.2 ml/m2 LA dimension(2D): 4.5 cm RA A4 area: 15.6 cm2 Doppler Measurements & Calculations MV E max jarrett: 39.4 cm/sec Lat Peak E' Jarrett: 8.0 cm/sec MV P1/2t max jarrett: 39.4 cm/sec MV A max jarrett: 75.8 cm/sec E/E' lat: 4.9 MV P1/2t: 23.1 msec MV E/A: 0.52 MV dec slope: 500.0 cm/sec2 MVA(P1/2t): 9.5 cm2 Ao V2 max: 119.4 cm/sec LV V1 max: 116.2 cm/sec SV(LVOT): 63.4 ml Ao max P.7 mmHg LV V1 max P.4 mmHg Ao V2 mean: 91.6 cm/sec LV V1 mean P.4 mmHg Ao mean P.7 mmHg LV V1 mean: 86.8 cm/sec Ao V2 VTI: 19.4 cm LV V1 VTI: 20.8 cm AV (velocity ratio): 1.1 RODNEY(I,D): 3.3 cm2 RODNEY(V,D): 3.0 cm2 PA V2 max: 84.4 cm/sec PA V2 mean: 60.9 cm/sec ECHO/Echo Complete W/ Contrast Interpretation Summary The left ventricular ejection fraction is 30 %. Normal LV size. Contrast injection was performed. Structurally normal valves. Ordering Physician: Owen Pedro Referring Physician: Owen Pedro Performed By: Ashwini Simmons RCS
== END | disposition home or self-care (01) ==
LOC: CVS 13:53
PROVIDERS: PCP Nurse Practitioner Family; Referring Provider Nurse Practitioner Family; Visit Provider Nurse Practitioner Family
DX: I50.1 Left ventricular failure, unspecified (principal); I42.9 Cardiomyopathy, unspecified
CPT/HCPCS: 93306; Q9957; A4216; C8929

== ENCOUNTER 2024-03-08 14:32 | Outpatient (RCR) | payer BC, SELFPAY | END 2024-03-12 23:59 | LOC: NS 14:32 | PROVIDERS: PCP Nurse Practitioner Family; Visit Provider Orthopaedic Surgery | DX: Z71.3 Dietary counseling and surveillance (principal); E66.01 Morbid (severe) obesity due to excess calories; Z68.42 Body mass index [BMI] 45.0-49.9, adult | CPT/HCPCS: 97803 ==